=== PATIENT | female | born 1995 | race Caucasian/White ===

== ENCOUNTER 2019-08-20 01:31 | Day surgery (SDC) | payer OTHER, SELFPAY ==
[2019-08-14 14:42] VITALS: BMI 24.3
--- NOTE | 2019-08-20 08:55 | WPDANESEPPF ---
Anes - Initial Pre Proc Eval Procedure: Operation Date: 08/20/19 09:45 Proposed Procedures p Suction Dilatation and Curettage - Regina Walker MD Date/Time: 08/20/19 08:55 Surgeon: Regina Walker MD Pre Op Diagnosis: missed AB Patient Data Age: 23 Gender: F Height: 5 ft 10 in Weight: 77.11 kg Allergies Allergy/AdvReac Type Severity Reaction Status Date / Time No Known Allergies Allergy Unverified 08/20/19 08:33 Home Medications Medication Instructions Recorded Confirmed Type No Home Medications 08/14/19 08/14/19 History Patient hx anesthesia problems: none Family hx anesthesia problems: none Anes - Eval Final PreProcedure Day of Procedure 08/20/19 08:55 Patient weight: normal Heart: regular rate and rhythm Lungs: clear to auscultation Airway: Mallampati scale class II Neurological: alert and oriented Last oral intake: >/= 8 hours ASA classification: I Emergent: no Anesthetic plan: proceed Anesthesia type and monitoring: general GIVS and standard monitoring Informed Consent: The patient's anesthetic plan and its attendant risks and benefits were discussed with the patient/family/POA. Questions were solicited and answers provided to the satisfaction of the patient/family/POA.
[2019-08-20 09:05] VITALS: BP 131/79; PULSE 65; RESP 14; TEMP 36.6; O2SAT 100; BMI 24.3
[2019-08-20] MEDS: LACTATED RINGERS 1,000 ML 30 ML IV CONT (09:12)
--- NOTE | 2019-08-20 09:32 | WPDHPUPDATE1 ---
History and Physical Update Update Date/Time: 08/20/19 09:32 History and Physical has been reviewed, including an updated exam of the patient. There are NO changes in the patient's condition. Risks, benefits, and alternatives have been discussed and questions answered. Patient agrees to proceed with procedure.
[2019-08-20] MEDS: IBUPROFEN IV 800 MG/200 ML 800 MG/200 ML BAG 400 MG IVPB (09:41)
[2019-08-20 10:11] VITALS: BP 88/62; PULSE 54; RESP 12; O2SAT 92
--- NOTE | 2019-08-20 10:17 | P.OP_ITS ---
Procedure Note - Detailed Date of procedure: 08/20/19 Pre-op diagnosis: missed AB Post-op diagnosis: same Procedure performed: Suction D&C Description of procedure: The patient was taken the operating room. She has prepped and draped in dorsal lithotomy position after induction of mac anesthesia. A speculum was placed in the vagina. The cervix was grasped with a tenaculum. The cervix was injected at 3 and 9:00 a.m. with 1% lidocaine. The cervix was dilated up to 8 mm using Flores dilators. An 8 curved plastic suction curette was then applied to the intrauterine cavity. All of the surfaces in the intrauterine cavity were curettage under VAC. A sharp medium-size curette was then used to curettage all the surfaces to confirmed the removal of all the products conception. When all surfaces for bleed to be clean the curette was r emoved. The suction curette was then reapplied to remove all the debris. The procedure was terminated. The tenaculum was removed. The speculum was removed. The patient tolerated the procedure well. She was taken recovery room in stable condition. Anesthesia: MAC Surgeon: Regina Walker MD Estimated blood loss (mL): 25 Drains: No Packing: No Pathology: yes Complications: No immediate complications Condition: stable Disposition: PACU Findings: Normal vulva vagina and cervix. The moderate amounts of products conception. 8 cm uterus.
[2019-08-20 10:40] VITALS: BP 95/63; PULSE 58
[2019-08-20 10:55] VITALS: BP 104/71; PULSE 64
== END 2019-08-20 11:08 | disposition home or self-care (01) ==
PROVIDERS: PCP Family Medicine; Visit Provider Obstetrics & Gynecology
PROC: (CPT 59820; principal; 2019-08-20 09:45)
DX: O02.1 Missed abortion (principal)
CPT/HCPCS: 59820; 36415; 88305; A9270; J1741; J2250; J2405; J2704; J3010; J7120

== ENCOUNTER 2019-10-01 14:35 | Emergency (ER) | payer OTHER, SELFPAY ==
[2019-10-01 14:45] VITALS: BP 143/87; PULSE 99; RESP 16; TEMP 37.2; O2SAT 99
--- NOTE | 2019-10-01 14:47 | ED.GENADULT ---
HPI - General Adult General Chief complaint: Extremity Problem,Nontraumatic Stated complaint: hip pain Time Seen by Provider: 10/01/19 14:49 Source: patient and RN notes reviewed Limitations: no limitations History of Present Illness HPI narrative: This is a 24 years old female presents to the office for an exacerbation of her left hip pain. 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 She is scheduled to have a hip surgery. Denies any recent trauma or injury however she went hiking over the weekend for about 10 mile and then pain started and never seems to subside. Aleve helped temporarily but did not take away the pain. Pain is worse when she lying down or walking. Denies numbness or tingling in her lower leg. Denies urinary incontinence or bowel incontinence. She also walk lot at work; would like an excuse. Stated she has had MRI and CAT scan for her hip. Related Data Allergies Allergy/AdvReac Type Severity Reaction Status Date / Time No Known Allergies Allergy Verified 10/01/19 14:48 Review of Systems Review of Systems: Narrative: CONSTITUTIONAL: Denies fever or feeling ill CARDIOVASCULAR: Denies chest pain RESPIRATORY: Denies cough GASTROINTESTINAL: Denies nausea, vomiting, diarrhea. GENITOURINARY: Denies urinary or bowel incontinence. SKIN: Denies rash MUSCULOSKELETAL: . Reports left hip pain only. Denies acute back pain NEUROLOGIC: Denies lightheaded PMFSH Past Medical History Medical History (Updated 10/01/19 @ 14:58 by GENARO Retana) Hip dysplasia Social History Social History Gender identity (if verbalized by the patient): Female Comments At time of signature, I agree with nursing past medical, surgical, social and family history. There is no relevant family history pertinent to the presenting complaint. Exam Narrative: Exam Narrative: GENERAL: This is a well-nourished, well-developed patient, in no apparent distress. CARDIOVASCULAR: Regular rate and rhythm without murmurs, gallops, or rubs. RESPIRATORY: Clear to auscultation. Breath sounds equal bilaterally. No wheezes, rales, or rhonchi. SKIN: warm, intact with no suspicious lesions or rash, good texture and turgor. NEURO: awake, alert, and oriented to person, place and time. There were no obvious focal neurologic abnormalities. Antalgia gait noted. BACK: No tenderness over the spinous processes of the lumbar vertebrae. LEGS: Normal strength including dorsi-flexion and plantar flexion of the feet. Negative bilateral straight leg raising, normal and symmetrical knee reflexes. Course Vital Signs Vital signs: Vital Signs Temperature 99.0 F 10/01/19 14:45 Pulse Rate 99 10/01/19 14:45 Respiratory Rate 16 10/01/19 14:45 Blood Pressure 143/87 H 10/01/19 14:45 Pulse Oximetry 99 10/01/19 14:45 Temperature 99.0 F 10/01/19 14:45 Pulse Rate 99 10/01/19 14:45 Respiratory Rate 16 10/01/19 14:45 Blood Pressure 143/87 H 10/01/19 14:45 Pulse Oximetry 99 10/01/19 14:45 Medical Decision Making MDM Narrative Medical decision making narrative: Elevated BP noted: patient is informed that they may have pre-hypertension or hypertension based on a blood pressure reading in the department. I recommend the patient call the primary care provider listed on their discharge instructions or a physician of their choice this week to arrange follow-up for further evaluation of possible pre-hypertension or hypertension within 1-2week. Discharge instructions reviewed with patient, as well as provided in writing per nursing staff. The instructions also include specific and strict return/GO TO THE ER as well as f/u information. All questions have been answered, and the patient deny any further questions with discharge and discharge plan. Differential Diagnosis Differential Diagnosis: Osteoarthritis, musculoskeletal pain, pain management Med
== END 2019-10-01 15:04 | disposition home or self-care (01) ==
PROVIDERS: Emergency Provider Nurse Practitioner
DX: M25.552 Pain in left hip (principal); Q65.89 Other specified congenital deformities of hip
CPT/HCPCS: 99213; G0463

== ENCOUNTER 2022-02-02 11:19 | Emergency (ER) | payer OTHER, SELFPAY ==
[2022-02-02 11:28] VITALS: BP 115/70; PULSE 89; RESP 16; TEMP 36.8; O2SAT 99
--- NOTE | 2022-02-02 11:33 | ED.NAVMDI ---
HPI - Nausea/Vomiting/Diarrhea General Chief complaint: Nausea/Vomiting/Diarrhea Stated complaint: n/v/d Time Seen by Provider: 02/02/22 11:46 Source: patient and RN notes reviewed Mode of arrival: ambulatory Limitations: no limitations History of Present Illness HPI Narrative: 26-year-old female presents with concern for nausea, vomiting, diarrhea that started yesterday. She reports she has not vomited since yesterday. Reports her last loose stool was this morning at 5 AM. She reports she thinks she ate a bad bratwurst yesterday. She denies abdominal pain, fever, bodies, chills, sweats. She denies upper respiratory symptoms or sick contacts. She did not take any [id number] intervention. She has been keeping down clear fluids today. Reports eating cereal elicited a loose stool MD elicited complaint: nausea, vomiting and diarrhea Related Data Home Medications Medication Instructions Recorded Confirmed Iud 02/02/22 Allergies Allergy/AdvReac Type Severity Reaction Status Date / Time No Known Allergies Allergy Verified 10/01/19 14:48 Review of Systems Review of Systems: CONSTITUTIONAL: Denies malaise, chills, sweats, or fever. ENT: Denies rhinorrhea, congestion, sinus pain, otalgia or sore throat. CARDIOVASCULAR: Denies chest pain, palpitations, or edema. RESPIRATORY: Denies cough or dyspnea. GASTROINTESTINAL: Denies abdominal pain, bloody, or mucous stools. Reports nausea, vomiting, diarrhea GENITOURINARY: Denies dysuria or hematuria. MUSCULOSKELETAL: Denies myalgia. NEUROLOGIC: Denies headache. All systems reviewed & are unremarkable except as noted in HPI and below PMFSH Past Medical History Medical History (Updated 02/02/22 @ 11:56 by Kaleigh Friedman NP) Hip dysplasia Social History Social History Gender identity (if verbalized by the patient): Female Comments At time of signature, agree with nursing past medical, surgical, social and family history. There is no relevant family history pertinent to the presenting complaint Exam Narrative: GENERAL: Well-appearing, well-nourished, and in no acute distress. HEAD: Normocephalic, atraumatic. EYES: PERRLA, conjunctivae clear, and EOMI. ENT: Nares clear, turbinates pink, no rhinorrhea or epistaxis. Mucous membranes moist. Oropharynx without edema, erythema, or lesions. Tonsils not enlarged and without exudate. NECK: Supple. No lymphadenopathy CHEST: Speaks in full sentences. No respiratory distress. HEART: Regular rate and rhythm. ABDOMEN: Soft, flat, nondistended. No guarding, rebound tenderness, or rigid. No pulsatilla masses. SKIN: Warm, dry, no rash. NEURO: Alert and oriented x3. PSYCH: Normal mood and affect Course Course Emergency Course: Patient is aware of diagnosis, understands and agrees to treatment plan. Anticipatory guidance given. Patient agrees to follow-up as directed and is aware of reasons to seek care at the emergency department. Portions of this record may have been created with voice recognition software Level of Care: Express Care Visit Vital Signs Vital signs: Vital Signs Temperature 98.2 F 02/02/22 11:28 Pulse Rate 89 02/02/22 11:28 Respiratory Rate 16 02/02/22 11:28 Blood Pressure 115/70 02/02/22 11:28 Pulse Oximetry 99 02/02/22 11:28 Oxygen Delivery Room Air 02/02/22 11:28 Temperature 98.2 F 02/02/22 11:28 Pulse Rate 89 02/02/22 11:28 Respiratory Rate 16 02/02/22 11:28 Blood Pressure 115/70 02/02/22 11:28 Pulse Oximetry 99 02/02/22 11:28 Oxygen Delivery Room Air 02/02/22 11:28 Reviewed. MDM - Nausea/Vomiting/Diarrhea MDM Narrative Medical decision making narrative: Exam findings show no acute concerns or changes; patient is non-toxic appearing and is in no distress. Patient is appropriate for outpatient treatment and follow-up. Differential Diagnosis Differential diagnosis: Likely traveler's diar
== END 2022-02-02 12:07 | disposition home or self-care (01) ==
PROVIDERS: Emergency Provider Nurse Practitioner
DX: R11.2 Nausea with vomiting, unspecified (principal); R19.7 Diarrhea, unspecified; Q65.89 Other specified congenital deformities of hip
CPT/HCPCS: 99213; G0463